=== PATIENT | male | born 1950 | race Caucasian/White ===

== ENCOUNTER 2016-08-12 12:13 | Emergency (ER) | payer MEDICARE, OTHER ==
[~2016-08-12] VITALS: Ht 177.8 cm; Wt 88.0 kg
[~2016-08-12 12:13] MED LIST: FURO-144 PO; LEVO75TA PO; TIMO5DRO31 OP
[2016-08-12] MEDS ORDERED: HYDROCODONE/APAP 5/325MG 1 EACH TABLET ONE (12:40)
--- NOTE | 2016-08-12 12:40 | NUR ---
PT BIB SELF C/O L WRIST PAIN AND SWELLING X1 DAY, ATRAUMATIC. NO VISIBLE DEFORMITIES. NAD NOTED. AMBULATORY WITH STEADY GAIT. NO OTHER COMPLAINTS. IN ER BED 16.
[2016-08-12 12:50] LABS: BASOPHILS % (AUTO) 0.7 % (0.0-2.0); EOSINOPHILS # (AUTO) 0.1 /CMM (0.0-0.7); EOSINOPHILS % (AUTO) 1.5 % (0.0-6.0); HEMATOCRIT 34 % (39-51); HEMOGLOBIN 11.1 g/dL (13.5-17.5); LYMPHOCYTES # (AUTO) 1.6 /CMM (0.8-4.8); LYMPHOCYTES % (AUTO) 25.7 % (20.0-44.0); MEAN CORPUSCULAR HEMOGLOBIN 29 PG (26.0-33.0); MEAN CORPUSCULAR HGB CONC 33 g/dl (31.0-36.0); MEAN CORPUSCULAR VOLUME 90 fL (80-96); MONOCYTES # (AUTO) 0.7 /CMM (0.1-1.30); NEUTROPHILS # (AUTO) 3.8 /CMM (1.8-8.9); NEUTROPHILS % (AUTO) 61.1 % (43.0-81.0); PLATELET COUNT (AUTO) 305 /CMM (150-450); RDW COEFFICIENT OF VARIATION 13.7 (11.5-15.0); WHITE BLOOD COUNT (AUTO) 6.2 K/uL (4.3-11.0)
[2016-08-12] MEDS ORDERED: HYDROCODONE/APAP 5/325MG 1 EACH TABLET PO ONE (13:00)
[2016-08-12 13:01] LABS: CALCIUM, SERUM 8.7 mg/dL (8.5-10.1); CREATININE 1.6 mg/dL (0.6-1.3); POTASSIUM 4.1 mmol/L (3.5-5.1)
--- NOTE | 2016-08-12 14:25 | NUR ---
Patient discharged to home in stable condition. Written and verbal after care instructions given. Patient verbalizes understanding of instruction. AMBULATORY WITH STEADY GAIT. DISPENSED WITH WRIST SPLINT PER MD FOR COMFORT.
[2016-08-12 14:39] VITALS: BP 149/70
== END 2016-08-12 14:39 | disposition home or self-care (01) ==
LOC: ER 12:16
DX: M10.9 Gout, unspecified (principal); M25.532 Pain in left wrist; N28.9 Disorder of kidney and ureter, unspecified; E11.9 Type 2 diabetes mellitus without complications; E03.9 Hypothyroidism, unspecified; H40.9 Unspecified glaucoma; D64.9 Anemia, unspecified; G62.9 Polyneuropathy, unspecified; K92.2 Gastrointestinal hemorrhage, unspecified; Z87.442 Personal history of urinary calculi
CPT/HCPCS: 29125; 36415; 73110; 80048; 84550; 85025; 99285; A4606; Z7610

== ENCOUNTER 2016-12-31 08:17 | Emergency (ER) | payer MEDICARE, OTHER ==
[~2016-12-31] VITALS: Ht 180.3 cm; Wt 88.0 kg
[2016-12-31 08:17] VITALS: BP 141/68
[2016-12-31] MEDS ORDERED: ONDANSETRON 4 MG TAB.RAPDIS ONE (08:43)
[2016-12-31] MEDS ORDERED: HYDROCODONE/APAP 5/325MG 1 EACH TABLET ONE (08:43)
[2016-12-31] MEDS ORDERED: HYDROCODONE/APAP 5/325MG 1 EACH TABLET PO ONE (09:00)
[2016-12-31] MEDS ORDERED: ONDANSETRON 4 MG TAB.RAPDIS PO ONE (09:00)
--- NOTE | 2016-12-31 09:11 | NUR ---
GI PHYSICIAN AT BEDSIDE
[2016-12-31] MEDS ORDERED: IBUPROFEN 400 MG TABLET ONE (09:18)
[2016-12-31] MEDS ORDERED: IBUPROFEN 400 MG TABLET PO ONE (09:30)
== END 2016-12-31 10:05 | disposition home or self-care (01) ==
LOC: ER 08:18
DX: S93.402A Sprain of unspecified ligament of left ankle, initial encounter (principal); M14.60 Charcot's joint, unspecified site; H40.9 Unspecified glaucoma; E11.40 Type 2 diabetes mellitus with diabetic neuropathy, unspecified; E03.9 Hypothyroidism, unspecified; Z87.442 Personal history of urinary calculi; Z79.899 Other long term (current) drug therapy; X50.1XXA Overexertion from prolonged static or awkward postures, initial encounter; Y93.01 Activity, walking, marching and hiking; Y92.89 Other specified places as the place of occurrence of the external cause; Y99.8 Other external cause status
CPT/HCPCS: 73610; 73630; 99284; A4606; Q0162; Z7610

== ENCOUNTER 2017-01-24 11:31 | Emergency (ER) | payer MEDICARE, OTHER ==
[~2017-01-24] VITALS: Ht 180.3 cm; Wt 92.5 kg
[2017-01-24 12:30] VITALS: BP 116/62
== END 2017-01-24 12:53 | disposition home or self-care (01) ==
LOC: ER 11:33
DX: M13.832 Other specified arthritis, left wrist (principal); E03.9 Hypothyroidism, unspecified; E11.9 Type 2 diabetes mellitus without complications; H40.9 Unspecified glaucoma; M10.9 Gout, unspecified; M19.90 Unspecified osteoarthritis, unspecified site; Z88.8 Allergy status to other drugs, medicaments and biological substances; Z87.442 Personal history of urinary calculi
CPT/HCPCS: A4606; Z7610

== ENCOUNTER 2021-08-31 21:17 | Emergency (ER) | payer MEDICARE, OTHER ==
[~2021-08-31] VITALS: Ht 177.8 cm; Wt 82.6 kg
[2021-08-31 21:58] VITALS: BP 144/61
[2021-08-31] MEDS ORDERED: AMOX-430 PO (22:14)
--- NOTE | 2021-08-31 22:44 | NUR ---
Patient discharged to home in stable condition. Written and verbal after care instructions given. Patient verbalizes understanding of instruction.
== END 2021-08-31 22:44 | disposition home or self-care (01) ==
LOC: ER 21:25
DX: K08.89 Other specified disorders of teeth and supporting structures (principal); E11.9 Type 2 diabetes mellitus without complications; Z86.69 Personal history of other diseases of the nervous system and sense organs; Z87.19 Personal history of other diseases of the digestive system; Z87.442 Personal history of urinary calculi; Z88.8 Allergy status to other drugs, medicaments and biological substances; Z79.899 Other long term (current) drug therapy

== ENCOUNTER 2022-08-05 12:57 | Emergency (ER) | payer MEDICARE, OTHER ==
[~2022-08-05] VITALS: Ht 177.8 cm; Wt 85.3 kg
[~2022-08-05 12:57] MED LIST changes: +AMOX-430 PO
--- NOTE | 2022-08-05 13:10 | NUR ---
THE PATIENT BIBS FOR C/O LEFT WRIST PAIN 11/24 + DEFORMITY S/P TRIP AND FALL 30 MINS AGO. NO S/S POOR CIRCULATION NOTED. WILL CONTINUE TO MONITOR THE PATIENT.
--- NOTE | 2022-08-05 13:18 | NUR ---
DR AUGUSTIN AT THE BEDSIDE
[2022-08-05] MEDS ORDERED: TDAP [DIPH/PERTUSSIS/TET] 0.5 ML VIAL IM ONE ×2 (13:26→13:30)
[2022-08-05] MEDS ORDERED: HYDROCODONE/APAP 5/325MG TABLET ONE (13:27)
[2022-08-05] MEDS ORDERED: HYDROCODONE/APAP 5/325MG TABLET PO ONE (13:30)
--- NOTE | 2022-08-05 13:40 | NUR ---
X-RAY TECH AT THE BEDSIDE
[2022-08-05] MEDS ORDERED: HYDR-4275 PO (14:15)
[2022-08-05] MEDS ORDERED: AMOX-427 PO (14:15)
--- NOTE | 2022-08-05 14:21 | NUR ---
Patient discharged to home in stable condition. Written and verbal after care instructions given. Patient verbalizes understanding of instruction.
[2022-08-05 14:22] VITALS: BP 142/78
== END 2022-08-05 14:22 | disposition home or self-care (01) ==
LOC: ER 13:01
DX: E11.40 Type 2 diabetes mellitus with diabetic neuropathy, unspecified (principal); S52.592A Other fractures of lower end of left radius, initial encounter for closed fracture; Z87.442 Personal history of urinary calculi; E03.9 Hypothyroidism, unspecified; Z98.890 Other specified postprocedural states; Z79.899 Other long term (current) drug therapy; Z88.1 Allergy status to other antibiotic agents; W01.0XXA Fall on same level from slipping, tripping and stumbling without subsequent striking against object, initial encounter; Y93.89 Activity, other specified; Y92.89 Other specified places as the place of occurrence of the external cause; Y99.8 Other external cause status
CPT/HCPCS: 73090-TC; 73110; 73130-TC; 90715